=== PATIENT | male | born 1960 | race African-American/Black ===

== ENCOUNTER 2018-03-15 07:07 | Emergency (ER) | payer MEDICAID ==
[~2018-03-15] VITALS: Ht 185.4 cm; Wt 77.3 kg
[2018-03-15] MEDS ORDERED: IBUPROFEN 600 MG TABLET PO ONE (08:00)
[2018-03-15 09:20] VITALS: BP 134/99
== END 2018-03-15 09:37 | disposition home or self-care (01) ==
LOC: EMS 07:09
DX: M79.671 Pain in right foot (principal); M25.511 Pain in right shoulder
CPT/HCPCS: 99284